=== PATIENT | female | born 1980 | race Caucasian/White ===

== ENCOUNTER → 2020-10-12 14:48 | Outpatient (CLI) | payer OTHER, SELFPAY ==
--- NOTE | ~2020-10-12 | MM_ITS ---
EXAMINATION: MM screening harley BI w bryanna HISTORY: Screening mammogram TECHNIQUE: Craniocaudal and mediolateral oblique 3-D tomosynthesis images were obtained and synthetic 2-D images were generated. CAD analysis was submitted and interpreted. COMPARISON: No prior mammogram is available for comparison at this institution. BREAST PARENCHYMAL COMPOSITION: The breasts are extremely dense, which lowers the sensitivity of mamm ography. FINDINGS: There are scattered punctate benign-appearing microcalcifications bilaterally. There is no evidence of suspicious mass, calcification, or architectural distortion to suggest malignancy in eith er breast. There has been no suspicious interval change. IMPRESSION: 1. No mammographic evidence of malignancy. 2. Recommend routine screening mammography in one year. BI-RADS Category 2: Benign finding(s). Reviewed, dictated and finalized at location A. 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
== END ==
PROVIDERS: Visit Provider Nurse Practitioner Obstetrics & Gynecology
DX: Z12.31 Encounter for screening mammogram for malignant neoplasm of breast (principal)
CPT/HCPCS: 77063; 77067

== ENCOUNTER → 2022-01-06 13:19 | Outpatient (CLI) | payer OTHER, SELFPAY ==
--- NOTE | ~2022-01-06 | MM_ITS ---
EXAMINATION: MM screening harley BI w bryanna HISTORY: Screening mammogram TECHNIQUE: Craniocaudal and mediolateral oblique 3-D tomosynthesis images were obtained and synthetic 2-D images were generated. CAD analysis was submitted and interpreted. COMPARISON: 10/12/2020 bilateral screening mammogram BREAST PARENCHYMAL COMPOSITION: The breasts are extremely dense, which lowers the sensitivity of mamm ography. FINDINGS: There is no evidence of suspicious mass, calcification, or architectural distortion to sugg est malignancy in either breast. There has been no suspicious interval change. IMPRESSION: 1. No mammographic evidence of malignancy. 2. Recommend routine screening mammography in one year. BI-RADS Category 1: Negative Reviewed, dictated and finalized at location A.
== END ==
PROVIDERS: PCP Nurse Practitioner Family; Visit Provider Nurse Practitioner Women's Health
DX: Z12.31 Encounter for screening mammogram for malignant neoplasm of breast (principal)
CPT/HCPCS: 77063; 77067

== ENCOUNTER 2023-12-06 11:30 | Outpatient (CLI) | payer OTHER, SELFPAY ==
--- NOTE | ~2023-12-06 | MM_ITS ---
EXAMINATION: MM screening harley BI w bryanna HISTORY: Screening TECHNIQUE: Craniocaudal and mediolateral oblique 3-D tomosynthesis images were obtained and synthetic 2-D images were generated. CAD analysis was submitted and interpreted. COMPARISON: Comparison to multiple prior studies sequentially, with oldest reviewed study dated 03/2021. BREAST PARENCHYMAL COMPOSITION: Dense: The breasts are extremely dense, which lowers the sensitivity of mammography. FINDINGS: There is no evidence of suspicious mass, calcification, or architectural distortion to sugg est malignancy in either breast. There has been no suspicious interval change. IMPRESSION: 1. No mammographic evidence of malignancy. 2. Recommend routine screening mammography in one year. BI-RADS Category 1: Negative Reviewed, dictated and finalized at location B.
== END 2023-12-06 11:31 ==
LOC: MICIMG 11:31
PROVIDERS: PCP Obstetrics & Gynecology; Visit Provider Obstetrics & Gynecology
DX: Z12.31 Encounter for screening mammogram for malignant neoplasm of breast (principal)
CPT/HCPCS: 77063; 77067

== ENCOUNTER 2025-03-31 09:21 | Day surgery (SDC) | payer OTHER, SELFPAY ==
[2025-03-21 14:27] VITALS: BMI 21.5
--- NOTE | 2025-03-24 13:25 | PC.NURSE ---
PRE-OPERATIVE [address] [address] 1. Report to the Surgery Center Waiting Room, the entrance is the first door on the right after passing through the automatic sliding doors, at time __[id number]__on unem___[id number] . OR Time:___1099 . - Time changes happen often and if your time is changed the preop area will call you the afternoon before. - You and your visitor will be asked to self-screen and do not enter if you have any COVID symptoms. - Two visitors over, age 16 and older, are allowed.? NO children visitors are allowed at this time. - A mask is optional within the hospital at this time. 2. FOLLOW PREP INSTRUCTIONS 3. Take the following medications with a SIP of water the morning of surgery: 1.___WELLBUTRIN IN AM 2. (PATIENT TAKES LEXAPRO IN EVENINGS) Medications to discontinue per physician order: 1. VITAMINS X3DAYS date to discontinue: 4. No make-up, nail nepali, hairspray, perfume, deodorant, or body powder the day of surgery. No jewelry (including any body piercings) or valuables the day of surgery. Please take a shower or bath the night before, or the morning of, surgery with an antibacterial soap. Wear comfortable, loose fitting clothing. Children are encouraged to wear pajamas. - Jewelry must be removed prior to entering the operating room. Rings and piercings that are not removed will be cut off. The center will not accept responsibility for valuables. Please leave all valuables, including medications, at home the day of surgery. 5. When going home after surgery, a licensed driver/merchandiser must drive you home. NO public transportation without another adult. We recommend someone to stay with you, no alcoholic beverages, driving or important decision making for 24 hours after surgery. For pediatric surgeries, we recommend two adults to accompany a child home. 6. Follow any additional instructions given by your physician. Telephone instructions given to: PATIENT and asked if any additional questions and then verbalized understanding. Patient advised to call surgeon office or the surgery center at [phone] if any additional questions.
[2025-03-31 09:56] VITALS: BMI 21.1
[2025-03-31 09:58] VITALS: BP 103/73; PULSE 66; RESP 16; TEMP 36.7; O2SAT 100
--- OUTSIDE RECORDS SUMMARY | 2025-03-31 10:03 | XMS_ITS | Clinical Summary ---
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 This disclosure is being madepursuant to the Care Everywhere program and may not contain all information available regarding this patient. Last updated 18.[facility] Encounters Date Type Department Care Team Description 02/13/2025 Lab Requisition [facility] - DermPath Lab [address] [place] [phone] Cyndie Briggs MD 01/30/2025 [facility] [place] [address] Cyndie Briggs MD from Last 3 Months Social History Tobacco Use Types Packs/Day Years Used Date Smoking Tobacco: Never Assessed Comments Unknown Sex and Gender Information Value Date Recorded Sex Assigned at Not on file Legal Sex Female 2:40 PM CDT Gender Identity Not on file Sexual Orientation Not on file Plan of Treatment Health Maintenance Due Date Last Done Comments COLOGUARD (AGES 45-75) - COL ON CA SCREENING 1979 COLON MONITORING 1979 COLONOSCOPY - COLON CA SCREENING 1979 CT COLONOGRAPHY - COLON CA SCREENING 1979 Colorectal Cancer Screening 1979 FIT - COLON CA SCREENING 1979 FLEX SIG - COLON CA SCREENING 1979 LIPID TESTING 1979 MAMMOGRAM 1979 HIV SCREENING 1994 HEPATITIS C SCREENING 08/08/1997 DTAP/TDAP/TD VACCINES (1 - Tdap) 1998 HEPATITIS B VACCINE (1 of 3 - 19+ 3-dose series) 1998 PAP SMEAR 2000 HPV VACCINE (1 - 3-dose SCDM series) 2006 COVID-19 VACCINE ( - 2023-2 5 season) 2024 DEPRESSION SCREENING 08/07/2024 INFLUENZA VACCINE (#1) 2025 ZOSTER VACCINE (1 of 2) 2029 HIB VACCINE Aged Out No longer eligi ble based on patient's age to complete this topic MENINGOCOCCAL (Group B) VACC INE SHARED DECISION-MAKING Aged Out No longer eligibl e based on patient's age to complete this topic MENINGOCOCCAL GROUPS A/C/Y/W VACCINE Aged Out No longer eligible b ased on patient's age to complete this topic PNEUMOCOCCAL VACCINE Aged Out No long er eligible based on patient's age to complete this topic Procedures Procedure Name Priority Date/Time Associated Diagnosis Comments DERMATOPATHOLOGY Routine 02/13/2025 4:31 PM CDT DERMATOPATHOLOGY Routine 01/30/2025 2:23 PM CDT from Last 3 Months Results * DERMATOPATHOLOGY (02/13/2025 4:31 PM CDT) Only the most recent of2 resultswithin the time period is included. Case Report Dermatopathology Report Case: [id number] Authorizing Provider: Cyndie Briggs MD Collected: 02/13/2025 04:31 PM Ordering Location: [facility] - Received: 02/18/2025 07:13 AM DermPath Lab Pathologist: Jenna Schwarz MD Specimen: Skin, left posterior ear 1:18 PM CDT DERMATOPATHOLOGY LABORATORY Final Diagnosis Specimen A. SKIN, left posterior ear: DERMAL SCAR RESIDUAL BASAL CELL CARCINOMA NOT IDENTIFIED (L90.5) 1:18 PM CDT DERMATOPATHOLOGY LABORATORY at 1318 CDT Clinical History Bx Proven BCC Prior biopsy 1:18 PM CDT DERMATOPATHOLOGY LABORATORY Gross Description Specimen A: Received is one formalin filled container labeled with the patient's name and designated left posterior ear.The specimen consists of an ellipse measuring 33x9x3 mm and is oriented with the notch at the 12 o'clock position not labeled on the requisition. The 12 to 6 o'clock margin is inked green. The 6 o'clock to 12 o'clock margin is inked red. The 12 o'clock tip is submitted in cassette 1. The 6 o'clock tip is submitted in cassette 2. The remainder of the ellipse is serially sectioned and submitted in cassettes 3-4. Jar 0. 5 1:18 PM CDT DERMATOPATHOLOGY LABORATORY Microscopic Description Specimen A. SKIN, left posterior ear: There are fibroblasts and collagen bundles oriented parallel to the skin surface. There are elongated blood vessels, some of which are oriented perpendicular to the skin surface. No basal cell carcinoma is identified. 5 1:18 PM CDT DERMATOPATHOLOGY LABORATORY Disclaimer An external and internal positive and negative controls are appropriate for the histochemical, immunohistochemical and immunofluorescence stain(s) in this case (if any), except where stated explicitly. The performance characteristics of the stain(s) cited in this report were developed and its performance characteristic determined by the Dermatopathology Laboratory at [facility], directed by Dr. Coty Judge. These tests need not be, and therefore are not, approved by the [place] Food and Drug Administration. The tests are used for clinical purposes. Billing Codes Specimen Charges Stain Charges 19216 1 5 1:18 PM CDT DERMATOPATHOLOGY LABORATORY Embedded Images 1:18 PM CDT DERMATOPATHOLOGY LABORATORY Pathology/Cytolo gy TISSUE SPECIMEN FROM SKIN / Unknown 02/13/2025 4:31 PM CDT 02/18/2025 7:13 AM CDT us Cyndie Briggs MD LAB - PATHOLOGY/CYTOLOGY ORD ERABLES Final Result DERMATOPATHOLOGY LABORATORY [facility] - Department of Dermatology [address], [address] [phone] from Last 3 Months Insurance [facility]
--- OUTSIDE RECORDS SUMMARY | 2025-03-31 10:03 | XMS_ITS | Encounter Summary ---
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 [address] [place] [address] Social History Tobacco Use Types Packs/Day Years Used Date Smoking Tobacco: Never Assessed Comments Unknown Sex and Gender Information Value Date Recorded Sex Assigned at Not on file Legal Sex Female 2:40 PM CDT Gender Identity Not on file Sexual Orientation Not on file documented as of this encounter Plan of Treatment Not on file documented as of this encounter Procedures Procedure Name Priority Date/Time Associated Diagnosis Comments DERMATOPATHOLOGY Routine 02/13/2025 4:31 PM CDT documented in this encounter Results * DERMATOPATHOLOGY (02/13/2025 4:31 PM CDT) Case Report Dermatopathology Report Case: [id number] Authorizing Provider: Cyndie Briggs MD Collected: 02/13/2025 04:31 PM Ordering Location: [facility] - Received: 02/18/2025 07:13 AM DermPath Lab [...] surface. No basal cell carcinoma is identified. 1:18 PM CDT DERMATOPATHOLOGY LABORATORY Disclaimer An external and internal positive and negative controls are appropriate for the histochemical, immunohistochemical and immunofluorescence stain(s) in this case (if any), except where stated explicitly. The performance characteristics of the stain(s) cited in this report were developed and its performance characteristic determined by the Dermatopathology Laboratory at [facility], directed by Dr. Coty Judge. These tests need not be, and therefore are not, approved by the [place] Food and Drug Administration. The tests are used for clinical purposes. Billing Codes Specimen Charges Stain Charges 04321 1 5 1:18 PM CDT DERMATOPATHOLOGY LABORATORY Embedded Images 1:18 PM CDT DERMATOPATHOLOGY LABORATORY Pathology/Cytolo gy TISSUE SPECIMEN FROM SKIN / Unknown 02/13/2025 4:31 PM CDT 02/18/2025 7:13 AM CDT us Cyndie Briggs MD LAB - PATHOLOGY/CYTOLOGY ORD ERABLES Final Result DERMATOPATHOLOGY LABORATORY [facility] - Department of Dermatology [address] [place], [place] [id number] [place] [address] documented in this encounter Visit Diagnoses Not on filedocumented in this encounter
--- OUTSIDE RECORDS SUMMARY | 2025-03-31 10:03 | XMS_ITS | Encounter Summary ---
Author Organization 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 [place] [address] Cyndie Briggs MD [address] [facility] [address] DEPT [place] [address] Social History Tobacco Use Types Packs/Day Years [...] Priority Date/Time Associated Diagnosis Comments DERMATOPATHOLOGY Routine 01/30/2025 2:23 PM CDT documented in this encounter Results * DERMATOPATHOLOGY (01/30/2025 2:23 PM CDT) Case Report Dermatopathology Report Case: [id number] Authorizing Provider: Cyndie Briggs MD Collected: 01/30/2025 02:23 PM Ordering Location: [facility] - Received: 02/03/2025 06:54 AM DermPath Lab Pathologist: Zachary Judge MD Specimen: Skin, left posterior ear 2:44 PM CDT DERMATOPATHOLOGY LABORATORY Final Diagnosis Specimen A. SKIN, left posterior ear: BASAL CELL CARCINOMA, NODULAR TYPE (C44.219) POST-INFLAMMATORY PIGMENT ALTERATION (L81.9) 2:44 PM CDT DERMATOPATHOLOGY LABORATORY at 1444 CDT Clinical History BCC vs SK 2:44 PM CDT DERMATOPATHOLOGY LABORATORY Gross Description Specimen A: Received is one formalin filled container labeled with the patient's name and designated left posterior ear. The specimen consists of a shave biopsy measuring 6x4x1 mm. Jar 0. 2:44 PM CDT DERMATOPATHOLOGY LABORATORY Microscopic Description Specimen A. SKIN, left posterior ear: Within the dermis there are aggregates of basaloid cells with a high nuclear to cytoplasmic ratio and peripheral palisading. Sections show abundant melanin within melanophages around the superficial vascular plexus. 2:44 PM CDT DERMATOPATHOLOGY LABORATORY Disclaimer An external and internal positive and negative controls are appropriate for the histochemical, immunohistochemical and immunofluorescence stain(s) in this case (if any), except where stated explicitly. The performance characteristics of the stain(s) cited in this report were developed and its performance characteristic determined by the Dermatopathology Laboratory at [facility], directed by Dr. Coty Judge. These tests need not be, and therefore are not, approved by the [place] Food and Drug Administration. The tests are used for clinical purposes. Billing Codes Specimen Charges Stain Charges 05652 1 2:44 PM CDT DERMATOPATHOLOGY LABORATORY Embedded Images 2:44 PM CDT DERMATOPATHOLOGY LABORATORY Pathology/Cytolo gy TISSUE SPECIMEN FROM SKIN / Unknown 01/30/2025 2:23 PM CDT 02/03/2025 6:54 AM CDT us Cyndie Briggs MD LAB - PATHOLOGY/CYTOLOGY ORD ERABLES Final Result DERMATOPATHOLOGY LABORATORY [facility] - Department of Dermatology [address] [phone] documented in this encounter Visit Diagnoses Not on filedocumented in this encounter
[2025-03-31] MEDS: LACTATED RINGERS 1,000 ML 150 ML IV CONT (10:09)
--- NOTE | 2025-03-31 10:16 | WPDANESEPPF ---
Anes - Initial Pre Proc Eval Procedure: Operation Date: 03/31/25 11:00 Proposed Procedures p Diagnostic Colonoscopy - Aj Pelaez MD Date/Time: 03/31/25 10:16 Surgeon: Aj Pelaez MD Pre Op Diagnosis: Encounter for screening for malignant neoplasm of Patient Data Age: 44 Gender: F Height: 1.55 m Weight: 50.7 kg Last Vital Signs Temp 98.1 F 03/31/25 09:58 Pulse 66 03/31/25 09:58 Resp 16 03/31/25 09:58 BP 103/73 03/31/25 09:58 Pulse Ox 100 03/31/25 09:58 O2 Del Method Room Air 03/31/25 09:58 Allergies Allergy/AdvReac Type Severity Reaction Status Date / Time Penicillins AdvReac Mild Rash Verified 03/31/25 09:38 Home Medications ?Medication ?Instructions ?Recorded ?Confirmed ?Type calcium carbonate 600 mg PO DAILY 11/01/23 03/31/25 History levonorgestrel (Mirena) 1 device intrauterine ONCE 11/01/23 03/24/25 History mecobalamin (vitamin B12) 1,000 1,000 mcg PO DAILY 11/01/23 03/31/25 History mcg chewable tablet escitalopram oxalate 10 mg tablet 10 mg PO DAILY #90 tabs 03/18/25 03/31/25 Rx bupropion HCl 300 mg 24 hr tablet, 300 mg PO DAILY 03/24/25 03/31/25 History extended release (Wellbutrin XL) cholecalciferol (vitamin D3) 25 25 mcg PO DAILY 03/24/25 03/31/25 History mcg (1,000 unit) capsule (Vitamin D3) metformin 500 mg tablet 500 mg PO DAILY 03/24/25 03/31/25 History naltrexone 50 mg tablet 118 mg PO DAILY 03/24/25 03/31/25 History Patient hx anesthesia problems: none Family hx anesthesia problems: none Results Review: All pre-operative results and documents have been reviewed as part of the pre-operative evaluation. [facility] Past Medical History Medical History Need for Tdap vaccination Right shoulder pain Anxiety Allergies Surgical History Surgical History Hx of abdominoplasty [place] teeth extracted Family History Family History Mother Family history of elevated blood lipids Breast cancer Father Malignant neoplasm of prostate Grandparent Heart disease Social History Social History (Updated 03/18/25 @ 10:19 by Rama Andrew MA) Social History: 03/07/25 very confident with medical forms Smoking status: Never smoker Alcohol intake: current Drinks per week: 1 Alcohol use details: Occasional Substance use: never Substance use type: does not use Do You Feel Safe in your Home?: Yes Lack of Transportation: No Lack of Food: Never True Current Housing: I Have Housing Concerned About Future Housing: No Difficulty Paying Gas/Electric Bills: No Difficulty Paying for Meds: No Currently Unemployed: No Education: Bachelor's Degree Difficulty w/ Childcare or Family Care: No Living arrangements: with family Occupation/Education: occupation 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 Informed Consent: The patient's anesthetic plan and its attendant risks and benefits were discussed with the patient/family/POA. Questions were solicited and answers provided to the satisfaction of the patient/family/POA.
--- NOTE | 2025-03-31 10:36 | PM.IMHP ---
H&P: HPI History of Present Illness Date/Time: 03/31/25 10:36 Chief Complaint: Screening colonoscopy Narrative: This is the patient's first colonoscopy. There are no GI symptoms and there is no family history of colorectal cancer. Review of Systems Review of Systems: All systems reviewed & are unremarkable except as noted in HPI and below PMFSH Past Medical History Medical History Need for Tdap vaccination Right shoulder pain Anxiety Allergies Surgical History Surgical History Hx of abdominoplasty [place] teeth extracted Family History Family History Mother Family history of elevated blood lipids Breast cancer Father Malignant neoplasm of prostate Grandparent Heart disease Social History Social History (Updated 03/18/25 @ 10:19 by Rama Andrew MA) Social History: 03/07/25 very confident with medical forms Smoking status: Never smoker Alcohol intake: current Drinks per week: 1 Alcohol use details: Occasional Substance use: never Substance use type: does not use Do You Feel Safe in your Home?: Yes Lack of Transportation: No Lack of Food: Never True Current Housing: I Have Housing Concerned About Future Housing: No Difficulty Paying Gas/Electric Bills: No Difficulty Paying for Meds: No Currently Unemployed: No Education: Bachelor's Degree Difficulty w/ Childcare or Family Care: No Living arrangements: with family Occupation/Education: occupation 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[employer] Spiritual care concerns: No Agree to blood products: Yes Meds Home Medications and Allergies Home Medications ?Medication ?Instructions ?Recorded ?Confirmed ?Type calcium carbonate 600 mg PO DAILY 11/01/23 03/31/25 History levonorgestrel (Mirena) 1 device intrauterine ONCE 11/01/23 03/24/25 History mecobalamin (vitamin B12) 1,000 1,000 mcg PO DAILY 11/01/23 03/31/25 History mcg chewable tablet escitalopram oxalate 10 mg tablet 10 mg PO DAILY #90 tabs 03/18/25 03/31/25 Rx bupropion HCl 300 mg 24 hr tablet, 300 mg PO DAILY 03/24/25 03/31/25 History extended release (Wellbutrin XL) cholecalciferol (vitamin D3) 25 25 mcg PO DAILY 03/24/25 03/31/25 History mcg (1,000 unit) capsule (Vitamin D3) metformin 500 mg tablet 500 mg PO DAILY 03/24/25 03/31/25 History naltrexone 50 mg tablet 118 mg PO DAILY 03/24/25 03/31/25 History Allergies Allergy/AdvReac Type Severity Reaction Status Date / Time Penicillins AdvReac Mild Rash Verified 03/31/25 09:38 Vital Signs Vital Signs - 24 hr 03/31/25 09:58 Temperature 98.1 F Pulse Rate 66 Respiratory Rate 16 Blood Pressure 103/73 Pulse Oximetry 100 Oxygen Delivery Room Air Exam Const: General: cooperative and healthy appearing Resp: Effort & Inspection: normal respiratory effort and able to speak in complete sentences Auscultation: clear to auscultation bilaterally Cardio: Rate: regular rate Rhythm: regular rhythm GI: Inspection: normal to inspection GI Palp: No No hepatosplenomegaly present Auscultation: normal bowel sounds Rectal Exam: deferred Skin: General skin exam: normal color Psych: Appearance: grossly normal Mental Status: mental status grossly normal Assessment and Plan Assessment and plan (1) Encounter for screening colonoscopy: Code(s): Z12.11 - Encounter for screening for malignant neoplasm of colon Status: Acute Assessment and Plan: The patient is deemed a good candidate for the procedure. Consent signed. Will proceed.
--- NOTE | 2025-03-31 11:15 | WPDANESPN ---
Anes - Prog Note Post-Op Date/Time: 03/31/25 11:15 Vital Signs: Last Vital Signs Temp 98.1 F 03/31/25 09:58 Pulse 66 03/31/25 09:58 Resp 16 03/31/25 09:58 BP 103/73 03/31/25 09:58 Pulse Ox 100 03/31/25 09:58 O2 Del Method Room Air 03/31/25 09:58 Pain Score (VAS): no Patient Feedback: Patient satisfied with anesthetic care.
[2025-03-31 11:23] VITALS: BP 105/67; PULSE 70; RESP 16; O2SAT 100
[2025-03-31 11:33] VITALS: BP 106/70; PULSE 54; RESP 16; O2SAT 100
[2025-03-31 11:43] VITALS: BP 113/67; PULSE 50; RESP 16; O2SAT 100
== END 2025-03-31 11:48 | disposition home or self-care (01) ==
PROVIDERS: Referring Provider Nurse Practitioner Family; Visit Provider Internal Medicine Gastroenterology
PROC: 0DJD8ZZ Inspection of Lower Intestinal Tract, Via Natural or Artificial Opening Endoscopic (ICD-10-PCS; CPT 45378; principal; 2025-03-31 11:00)
DX: Z12.11 Encounter for screening for malignant neoplasm of colon (principal)
CPT/HCPCS: 45378